=== PATIENT | female | born 1975 | race Caucasian/White ===

== ENCOUNTER 2016-06-28 09:31 | Emergency (ER) | payer MEDICAID ==
[~2016-06-28] VITALS: Wt 75.0 kg
[~2016-06-28 09:31] MED LIST: CEPH-443 PO; OXYC-281 PO
[2016-06-28] MEDS ORDERED: ACETAMINOPHEN 500 MG TAB PO STA (10:09)
--- NOTE | 2016-06-28 10:22 | ERD ---
ER Documentation Chief Complaint Date/Time DATE: 06/28/16 TIME: 10:21 Chief Complaint LOW BACK PAIN X1 DAY, NO INJURY HPI Patient is a 40-year-old female who presents to the ED with low back pain, dysuria, urgency since last night. She has had low-grade fevers at home. She states that she has had a history of UTIs in the past and states that this is similar to this. Denies hematuria. Denies abdominal pain, nausea, vomiting or diarrhea. Denies headache or dizziness. Denies chest pain, shortness of breath or difficulty breathing. Denies leg pain or swelling. Denies abnormal vaginal discharge or bleeding. ROS All systems reviewed and are negative except as per history of present illness. Medications Home Meds Active Scripts Ciprofloxacin Hcl* (Ciprofloxacin Hcl*) 500 Mg Tablet, 500 MG PO BID for 7 Days , TAB Prov:GINO VILLEDA PA-C 06/28/16 Oxycodone Hcl-Acetaminophen* (Percocet*) 5-325 Mg Tablet, 1 TAB PO TID Y for PAIN LEVEL 6-10, #12 TAB Prov:TAMANNA TOVAR MD 08/15/15 Cephalexin* (Keflex*) 500 Mg Capsule, 500 MG PO TID for 5 Days, CAP Prov:TAMANNA TOVAR MD 08/15/15 Allergies Allergies: Coded Allergies: No Known Allergy (Unverified , 08/15/15) PMhx/Soc History of Surgery: Yes (APPENDECTOMY) Anesthesia Reaction: No Hx Neurological Disorder: No Hx Respiratory Disorders: No Hx Cardiac Disorders: No Hx Psychiatric Problems: No Hx Miscellaneous Medical Probl: No Hx Alcohol Use: No Hx Substance Use: No Hx Tobacco Use: Yes Physical Exam Vitals Vital Signs Date Time Temp Pulse Resp B/P Pulse Ox O2 Delivery O2 Flow Rate FiO2 06/28/16 09:37 100.4 75 18 116/67 98 Physical Exam GENERAL: Well-developed, well-nourished female. Appears in no acute distress. LUNG: Clear to auscultation bilaterally. No rhonchi, wheezing, rales or coarse breath sounds. HEART: Regular rate and rhythm. No murmurs, rubs or gallops. ABDOMEN: No scars, ecchymosis or rashes noted. Soft, nontender, and nondistended. Positive bowel sounds in all four quadrants. No rebound tenderness , no guarding. (-) McBurneys point tenderness.CVA tenderness Extremities: Equal pulses bilaterally. No peripheral clubbing, cyanosis or edema. No unilateral leg swelling. NEUROLOGIC: Alert and oriented. Moving all four extremities. 5/5 strength in all extremities. Normal speech. Steady gait. SKIN: Normal color. Warm and dry. No rashes or lesions. Capillary refill < 2 seconds Results 24 hrs Laboratory Tests Test 06/28/16 10:25 Urine Bacteria MANY Urine Bilirubin NEGATIVE Urine Clarity CLEAR Urine Color LT. YELLOW Urine Epithelial Cells MODERATE Urine Glucose NEGATIVE% Urine Hemoglobin NEGATIVE Urine Ketones NEGATIVE Urine Leukocyte Esterase NEGATIVE Urine Microscopic RBC 2-5/HPF Urine Microscopic WBC 5-10/HPF Urine Nitrite POSITIVE Urine Specific [place] 1.010 Urine Total Protein NEGATIVE Urine Urobilinogen 1.0 E.U./dL Urine pH 7.5 Current Medications Medications (Trade) Dose Ordered Sig/Princess Route PRN Reason Start Time Stop Time Status Last Admin Dose Admin Acetaminophen (Tylenol Tab) 1,000 mg ONCE STAT PO 06/28/16 10:09 06/28/16 10:11 DC 06/28/16 10:24 Procedures/MDM ER COURSE: I kept the patient and/or family informed of laboratory and diagnostic imaging results throughout the emergency room course. MEDICATIONS: Tylenol. Tolerated medication well with no adverse reaction. LAB INTERPRETATION: UA showed no evidence of leukocytes, no hematuria. positive nitrites Urine test was negative. MEDICAL DECISION MAKING: This is a 40 year old female who presents with back pain and urgency and dysuria. Vital signs were reviewed. Patient has temperature of 100.4 in the ED. Patient is not hypoxic. Patient has what is likely pyelonephritis. Urine was also sent for culture. Patient has CVa tenderness, low grade fever and nitrites. Low suspicion for ovarian torsion, PID, tuboovarian abscess, ectopic , bowel obstruction, pyelonephritis, appendicitis, cervicitis, septic , molar , HELLP syndrome, preeclampsia, eclampsia, placenta previa, placenta abruptia. DISCHARGE: At this time, patient is stable for discharge and outpatient management with no new complaints during the ER course. Patient was sent home with Ciprofloxacin.. Patient will be discharged home with instructions to recheck for new or worsening symptoms such as fever, nausea, weakness, LOC and to follow up with primary care in the next 1-2 days. Patient was advised to return to the ER for any new or worsening symptoms. Plan was discussed and patient and/or family understands and agrees. Home instructions were given. Departure Diagnosis: Primary Impression: Pyelonephritis Condition: Stable GINO VILLEDA PA-C Jun 28, 2016 10:22
[2016-06-28 11:54] LABS: ADD UMIC YES; URINE BILIRUBIN (Dip) NEGATIVE (NEGATIVE); URINE BLOOD (Dip) NEGATIVE (NEGATIVE); URINE COLOR LT. YELLOW (YELLOW); URINE GLUCOSE (Dip) NEGATIVE (NEGATIVE); URINE KETONES (Dip) NEGATIVE (NEGATIVE); URINE LEUKOCYTE ESTERASE (Dip) NEGATIVE (NEGATIVE); URINE NITRITE (Dip) POSITIVE (NEGATIVE); URINE TOTAL PROTEIN (Dip) NEGATIVE (NEGATIVE); URINE UROBILINOGEN (Dip) 1.0 E.U./dL (0.1-1.0)
[2016-06-28 12:02] LABS: BACTERIA,URINE MANY
[2016-06-28] MEDS ORDERED: CIPR500T4 PO (12:10)
== END 2016-06-28 12:17 | disposition home or self-care (01) ==
LOC: FTE 09:31
DX: N12 Tubulo-interstitial nephritis, not specified as acute or chronic (principal); Z72.0 Tobacco use
CPT/HCPCS: 81001; 87086; Z7502; Z7610; 81003; 99283